=== PATIENT | male | born 1990 | race Caucasian/White ===

== ENCOUNTER 2016-08-06 01:21 | Emergency (ER) | payer OTHER ==
--- NOTE | ~2016-08-06 | CR2 ---
[facility] A Service of [facility] & [facility] RADIOLOGY TEXT RESULTS PATIENT: ABDIEL PHILLIPS LOCATION: SED : 86 UNIT #: [id number] AGE: [address]: Joana Be MD SEX: M ORDER DR: [id number] [address] [address] [id number] E MR#: [id number] #: [id number] NAME: ABDIEL PHILLIPS : 1990 SEX: M STUDY DATE/TIME: 08/06/2016 03:05 UNIT: SED ROOM: STUDY DESCRIPTION: CR Abdomen Acute Series Attending Physician: Joana Be M.D. Ordering Physician: Joana Be M.D. MEDICAL IMAGING REPORT This report is preliminary unless electronic signature is present. EXAM Acute ab series, 08/06 at 03:05. INDICATIONS Upper abdominal and epigastric pain with bloating and nausea for 2 days. FINDINGS Upright PA view of the chest was obtained in addition to multiple flat and upright views of the abdomen. Comparison made with chest x-ray from 07/21/2010. Exam is degraded by patient obesity. Cardiac and mediastinal contours are stable. There is some mild central vascular congestion noted. There is linear atelectasis or scarring noted in the right middle lobe. No pneumothorax. Bowel gas pattern is normal. No obstruction or free air is seen. No definite renal or ureteral stones. IMPRESSION 1. Size-limited exam, but the bowel gas pattern is normal. No obstruction or free air is seen. 2. Mild vascular congestion suggested in the chest. There is linear atelectasis or scar in the right middle lobe. Dictated by... Riccardo Benz Jr., M.D. THIS IS AN ELECTRONICALLY VERIFIED REPORT Riccardo Benz Jr., M.D. at 08/06/2016 6:11 AM MACEY/joe TD: 08/06/2016 05:12 JOB #: [id number] MEDICAL IMAGING REPORT [facility] A Service of [facility] RADIOLOGY TEXT RESULTS PATIENT: ABDIEL PHILLIPS [place] [facility] [place] [birth year] UNIT #: [id number] AGE: [address]: Joana Be MD SEX: M ORDER DR: Page 1 of 1
[~2016-08-06 01:21] MED LIST: VICODIN 5/500 T1 TAB PO
[2016-08-06 02:17] LABS: BASOPHIL# 0.1 X10e3 (0-0.3); BASOPHIL% 0.6 % (0-2.5); EOSINOPHIL# 0.2 X10e3 (0-0.7); EOSINOPHIL% 1.9 % (0.0-7.0); HEMATOCRIT 41.2 % (38.0-50.0); HEMOGLOBIN 13.3 gm/dL (13.0-16.0); LYMPHOCYTE# 1.9 X10e3 (1.0-3.5); LYMPHOCYTE% 15.8 % (17.0-45.0); MEAN CELL VOLUME 79.3 FL (83-96); MEAN CORPUSCULAR HEMOGLOBIN 25.6 PG (28-34); MEAN CORPUSCULAR HGB CONC 32.3 g/dL (30-36); MEAN PLATELET VOLUME 8.8 FL (6.5-11.5); MONOCYTE# 0.8 X10e3 (0-1.0); MONOCYTE% 6.6 % (3.0-12.0); NEUTROPHIL# 8.8 X10e3 (1.5-7.1); NEUTROPHIL% 75.1 % (40-75); PLATELET COUNT 185 X10e3 (140-420); RED CELL DISTRIBUTION WIDTH 15.6 % (11.0-15.5); WHITE BLOOD COUNT 11.7 X10e3 (4.0-10.5)
[2016-08-06 02:18] LABS: DIFF IND NO
[2016-08-06 02:18] LABS: URINE APPEARANCE CLEAR; URINE BILIRUBIN NEG (NEG); URINE BLOOD NEG (NEG); URINE COLOR YELLOW; URINE GLUCOSE NEG (NORM); URINE KETONE NEG (NEG); URINE LEUKOCYTE ESTERASE NEG (NEG); URINE NITRATE NEG (NEG); URINE PROTEIN NEG (NEG); URINE SPECIFIC GRAVITY >=1.030 (1.003-1.035); URINE UROBILINOGEN 0.2 MG/DL (NORM)
[2016-08-06 02:22] LABS: MICRO INDICATED? NO; URINE SOURCE CLEAN CATCH
[2016-08-06 02:27] LABS: ALBUMIN SERUM 3.8 g/dL (3.5-5.0); BILIRUBIN, DIRECT 0.1 mg/dL (0.0-0.2); BILIRUBIN,INDIRECT 0.6 mg/dL (0.0-0.9); BILIRUBIN,TOTAL 0.7 mg/dL (0.2-2.0); CALCIUM SERUM 8.7 mg/dL (8.4-10.2); CREATININE SERUM 0.8 mg/dL (0.6-1.4); GLOM FILT RATE Estimated 121.6 mL/min (>60); POTASSIUM 3.7 mmol/L (3.5-5.1); PROTEIN TOTAL SERUM 7.7 g/dL (6.0-8.3)
== END 2016-08-06 04:40 | disposition home or self-care (01) ==
LOC: SED 01:21
PROVIDERS: Emergency Medicine
DX: K29.00 Acute gastritis without bleeding (principal); B19.20 Unspecified viral hepatitis C without hepatic coma; F17.200 Nicotine dependence, unspecified, uncomplicated
CPT/HCPCS: 36415; 74022; 80048; 80076; 81003; 82150; 83690; 85025; 96374; 96375; 96376; 99284; C9113; J2270; J2405